=== PATIENT | male | born 1975 | race Caucasian/White ===

== ENCOUNTER 2017-06-01 10:47 | Emergency (ER) | payer MEDICAID ==
[~2017-06-01] VITALS: Ht 175.3 cm; Wt 104.0 kg
[2017-06-01 10:51] VITALS: BP 116/76
[2017-06-01] MEDS ORDERED: TRAM50TA2 PO (11:18)
[2017-06-01] MEDS ORDERED: BUPR-173 PO (11:18)
[2017-06-01] MEDS ORDERED: PREG25CA PO (11:18)
== END 2017-06-01 11:42 | disposition home or self-care (01) ==
LOC: ED 11:25
DX: H66.91 Otitis media, unspecified, right ear (principal); M79.7 Fibromyalgia
CPT/HCPCS: 99282

== ENCOUNTER 2017-07-20 11:54 | Emergency (ER) | payer MEDICAID ==
[~2017-07-20] VITALS: Ht 175.3 cm; Wt 107.3 kg
[~2017-07-20 11:54] MED LIST: BUPR-173 PO; PREG25CA PO; TRAM50TA2 PO
[2017-07-20 12:09] VITALS: BP 132/81
== END 2017-07-20 13:15 | disposition home or self-care (01) ==
LOC: ED 12:27
DX: J01.00 Acute maxillary sinusitis, unspecified (principal); F32.9 Major depressive disorder, single episode, unspecified; M79.7 Fibromyalgia
CPT/HCPCS: 99283

== ENCOUNTER 2017-09-01 14:48 | Emergency (ER) | payer MEDICAID ==
[~2017-09-01] VITALS: Ht 175.3 cm; Wt 105.8 kg
[2017-09-01 15:11] VITALS: BP 114/73
== END 2017-09-01 16:48 | disposition home or self-care (01) ==
LOC: ED 16:42
DX: J09.X2 Influenza due to identified novel influenza A virus with other respiratory manifestations (principal)
CPT/HCPCS: 99283